=== PATIENT | female | born 1955 | race Two or more races ===

== ENCOUNTER 2019-01-24 20:00 | Emergency (ER) | payer OTHER ==
[2019-01-24 20:06] VITALS: BMI 25.1
--- NOTE | 2019-01-24 21:43 | PDOC ---
History of Present Illness - General History Source: Patient Exam Limitations: No Limitations <Libia Guerra - Last Filed: 01/24/19 21:38> <Katia Lim - Last Filed: 01/24/19 22:51> - General Chief Complaint: Pain, Acute Stated Complaint: LFT ARM PAIN Time Seen by Provider: 01/24/19 20:22 Past History - Past Medical History COPD: No - Suicide/Smoking/Psychosocial Hx Smoking History: Never smoked <Libia Guerra - Last Filed: 01/24/19 21:38> <Katia Lim - Last Filed: 01/24/19 22:51> - Past Medical History Allergies/Adverse Reactions: Allergies Allergy/AdvReac Type Severity Reaction Status Date / Time terbinafine [From Lamisil] Allergy Verified 01/24/19 20:06 Home Medications: Ambulatory Orders Cholecalciferol (Vitamin D3) [Vitamin D3] 1,000 unit PO DAILY 01/24/19 Mv-Mn/Folic Acid/Vit [id number] [Alive Once Daily Women 50 Plus] 1 each PO DAILY 01/24/19 *Physical Exam - Vital Signs Last Vital Signs Temp Pulse Resp BP Pulse Ox 98.3 F 73 18 146/87 97 01/24/19 20:25 01/24/19 20:25 01/24/19 20:25 01/24/19 20:25 01/24/19 20:25 - Physical Exam General Appearance: No: Apparent Distress Neck: positive: Supple. negative: Rigid, Decreased range of motion, Tender lateral, Tender midline Respiratory/Chest: positive: Lungs Clear, Normal Breath Sounds. negative: Respiratory Distress Cardiovascular: positive: Regular Rhythm, Regular Rate, S1, S2. negative: Murmur Gastrointestinal/Abdominal: positive: Normal Bowel Sounds, Soft. negative: Tender, Distended, Guarding, Rebound Extremity: positive: Normal Inspection, Normal Range of Motion Integumentary: positive: Normal Color. negative: Swelling, Ecchymosis Neurologic: positive: blasting helper II-XII NML intact, Fully Oriented, Alert, Normal Mood/ Affect, Motor Strength 5/5. negative: Numbness, Sensory Deficit <Libia Guerra - Last Filed: 01/24/19 21:38> - Vital Signs Last Vital Signs Temp Pulse Resp BP Pulse Ox 97.7 F 65 18 143/79 97 01/24/19 21:54 01/24/19 21:54 01/24/19 21:54 01/24/19 21:54 01/24/19 21:54 <Katia Lim - Last Filed: 01/24/19 22:51> Medical Decision Making - Medical Decision Making 63 y/o F with no sig pmh presents with LUE/L upper back pain and occasional L arm tingling going on intermittently since 2012 after she had a fall (was told by doctor at the time, she had 10% loss of function of L arm). States usually the sxs would resolve after getting massage, but last month, her massage was a bit rough causing the pain to get a little worse. States she also sleeps on the left side as that is what she is accustomed to and that can also worsen the pain. Last night, experienced worsening of pain and took Tylenol and Motrin which helped relieve the pain. Also experienced some pain and tingling today for which she took Tylenol and then symptoms resolved. Came to ED as states her daughter was concerned her symptoms may be related to her heart. Denies fever, sob, cp, neck pain, abd pain, weakness of extremities. Denies smoking or drug use. Denies FH of CAD or MD EKG: NSR at [address]-T changes Not suspicious for ACS given no risk factors and given chronicity of symptoms Likely MSK pain Patient reassured 01/24/19 21:39 <Libia Guerra - Last Filed: 01/24/19 21:38> - Medical Decision Making The patient was seen and evaluated in conjunction with midlevel provider under my direct supervision, ancillary studies were reviewed. I agree with the plan as outlined VERONIQUE Guerra. HPI, workup/dispo as outlined. VS reviewed, wnl. EKG sinus rhythm 01/24/19 22:50 <Katia Lim - Last Filed: 01/24/19 22:51> *DC/Admit/Observation/Transfer - Discharge Dispostion Decision to Admit order: No <Libia Guerra - Last Filed: 01/24/19 21:38> <Katia Lim - Last Filed: 01/24/19 22:51> Diagnosis at time of Disposition: Left arm pain - Discharge Dispostion Disposition: HOME Condition at time of disposition: Stable - Referrals Referrals: Latoya Evans MD [Primary Care Provider] - 2 Days - Patient Instructions Additional Instructions: Thank you for choosing [facility]. It was a pleasure taking care of you. Likely your symptoms are musculoskeletal in nature You can take Tylenol or Motrin as needed for pain Warm compresses may also help Follow-up with your doctor in 2 days Return to the Emergency Department if your symptoms worsen or persist, weakness of extremities, chest pain, shortness of breath or other concerning symptoms. Print Language: BULGARIAN - Post Discharge Activity
[2019-01-24 21:58] VITALS: BP 143/79; PULSE 65; TEMP 97.7
--- NOTE | 2019-01-28 12:49 | EKG ---
Test Reason : Blood Pressure : / mmHG Vent. Rate : 071 BPM Atrial Rate : 071 BPM P-R Int : 168 ms QRS Dur : 092 ms QT Int : 396 ms P-R-T Axes : 061 061 039 degrees QTc Int : 430 ms POOR DATA QUALITY, INTERPRETATION MAY BE ADVERSELY AFFECTED NORMAL SINUS RHYTHM NORMAL ECG NO PREVIOUS ECGS AVAILABLE Confirmed by Nitesh Aragon MD ([id number]) on 01/28/2019 12:49:00 PM Referred By: Confirmed By:Nitesh Aragon MD
== END 2019-01-24 21:58 | disposition home or self-care (01) ==
LOC: JER 20:00
DX: M79.602 Pain in left arm (principal); R20.0 Anesthesia of skin; Z91.81 History of falling
CPT/HCPCS: 93005; 93010; 99282-25